=== PATIENT | female | born 1985 | race Caucasian/White ===

== ENCOUNTER 2019-06-01 13:26 | Inpatient (IN) ==
[2019-06-01] MEDS ORDERED: ALBUTEROL/IPRATROPIUM 3 ML NEB RESP TX PRN (13:29)
[2019-06-01] MEDS ORDERED: BISACODYL 5 MG TABLET PO PRN (13:29)
[2019-06-01] MEDS ORDERED: HYDROmorphone 2 MG/1 ML VIAL IV PRN (13:29)
[2019-06-01] MEDS ORDERED: ACETAMINOPHEN 325 MG TABLET PO PRN (13:29)
[2019-06-01] MEDS ORDERED: KETOROLAC 15 MG/1 ML VIAL IV PRN (13:29)
[2019-06-01] MEDS ORDERED: cefOXitin 2,000 MG in SYRINGE 1 EACH IV SCH (13:30)
[2019-06-01] MEDS ORDERED: LACTATED RINGERS 1,000 ML IV SCH (13:30)
[2019-06-01 14:51] LABS: Basophils # 0.1 10*3/uL (0.0-0.2); Basophils % 0.4 % (0.0-0.8); Eosinophils # 0.3 10*3/uL (0.0-0.87); Hematocrit 40.2 VOL% (35.7-47.0); Immature Granulocytes % 0.6 %; Immature Granulocytes Absolute 0.08 #; Lymphocytes # 2.1 10*3/uL (1.4-4.0); Lymphocytes % 16.1 % (21.3-54.2); Mean Corpuscular HGB Conc 32.3 GM/DL (32-36); Mean Corpuscular Volume 93.9 FL (87-102); Monocytes % 5.3 % (1.7-12.7); Neutrophils % 75.6 % (38.7-73.9); Platelet Count 328 T/CUMM (130-400); Red Blood Count 4.28 MC/CUMM (3.8-5.5); Red Cell Distribution Width 12.6 % (9.3-17.3); White Blood Count 13.2 T/CUMM (4-12)
[2019-06-01] MEDS ORDERED: BUPIVACAINE MPF 0.25% /EPI 30 ML VIAL ONE (15:11)
[2019-06-01] MEDS ORDERED: LIDOCAINE 1% 20 ML VIAL ONE (15:11)
[2019-06-01] MEDS ORDERED: TISSUE ADHESIVE 1 EACH APPLICATOR TOP ONE (15:11)
[2019-06-01 15:20] LABS: Bilirubin,Total 0.7 MG/DL (0.2-1.0); Calcium 8.4 MG/DL (8.5-10.1); Osmolality,Calculated 274.7 MOS/KG (273-304); Total Protein 7.6 G/DL (6.4-8.3)
[2019-06-01 16:03] LABS: Apearance,Urine Slightly Hazy (Clear); Bilirubin,Urine Negative (Negative); Blood, Urine Negative (Negative); Glucose,Urine (UA) Negative (Negative); Ketones,Urine 20 mg/dL (Negative); Mucus,Urine Occasional /LPF (Occasional); Nitrite,Urine Negative (Negative); Protein,Urine Negative; RBC,Urine 24 /HPF (0-4); Squamous Epithelial Cell,Urine Moderate /HPF (0-10); Urine Color Yellow (Yellow); Urine Specific Gravity 1.044 (1.001-1.035); Urine Urobilinogen < 2.0 EU/DL (0.2-1.0); WBC,Urine 26 /HPF (0-6)
[2019-06-01] MEDS ORDERED: MIDAZOLAM 2 MG/2 ML VIAL ONE (17:13)
[2019-06-01] MEDS ORDERED: ONDANSETRON 4 MG/2 ML VIAL ONE (17:13)
[2019-06-01] MEDS ORDERED: SEVOFLURANE 1 UNIT/15 MINUTE INH ONE (17:13)
[2019-06-01] MEDS ORDERED: PROPOFOL 200 MG/20 ML VIAL IV ONE (17:13)
[2019-06-01] MEDS ORDERED: fentaNYL 100 MCG/2 ML VIAL ONE (17:13)
[2019-06-01] MEDS ORDERED: ACETAMINOPHEN 1,000 MG/100 ML VIAL IV ONE (17:13)
[2019-06-01] MEDS ORDERED: SUCCINYLCHOLINE 200 MG/10 ML VIAL ONE (17:13)
[2019-06-01] MEDS ORDERED: PHENYLEPHRINE 1 MG/10 ML SYRINGE IV ONE (17:14)
[2019-06-01] MEDS ORDERED: LACTATED RINGERS 1,000 ML IV ONE (17:14)
[2019-06-01] MEDS ORDERED: ROCURONIUM 100 MG/10 ML VIAL IV ONE (17:14)
[2019-06-01] MEDS ORDERED: ONDANSETRON 4 MG/2 ML VIAL IV PRN (17:20)
[2019-06-01] MEDS: HYDROmorphone 2 MG/1 ML VIAL IV PRN ×6 (17:20→22:41)
[2019-06-01] MEDS ORDERED: LORazepam 2 MG/1 ML VIAL IV ONE ×2 (17:40)
[2019-06-01] MEDS ORDERED: MEPERIDINE 25 MG/1 ML VIAL IV ONE (17:40)
[2019-06-01] MEDS ORDERED: MEPERIDINE 25 MG/1 ML VIAL ONE (17:45)
[2019-06-01] MEDS ORDERED: LORazepam 2 MG/1 ML VIAL ONE (17:46)
[2019-06-01] MEDS: PIPERACILLIN/TAZOBACTAM 3,375 MG in SODIUM CHLORIDE 0.9% 100 ML IV SCH (20:07)
[2019-06-01] MEDS: ONDANSETRON 4 MG/2 ML VIAL IV PRN (21:51)
[2019-06-02] MEDS: PIPERACILLIN/TAZOBACTAM 3,375 MG in SODIUM CHLORIDE 0.9% 100 ML IV SCH (03:04)
[2019-06-02] MEDS: HYDROmorphone 2 MG/1 ML VIAL IV PRN (03:30)
[2019-06-02] MEDS: ONDANSETRON 4 MG/2 ML VIAL IV PRN (03:31)
[2019-06-02 08:06] VITALS: BP 118/75
[2019-06-02] MEDS ORDERED: PANTOPRAZOLE 40 MG TABLET PO SCH (09:00)
== END 2019-06-02 10:50 | disposition home or self-care (01) | DRG 342 ==
LOC: N.3E 14:17
PROVIDERS: ADMIT Student in an Organized Health Care Education/Training Program; ATTEND Student in an Organized Health Care Education/Training Program